=== PATIENT | female | born 1950 ===

== ENCOUNTER 2020-04-12 12:45 | Inpatient (IN) | payer OTHER ==
[~2020-04-12] VITALS: Ht 165.1 cm; Wt 65.3 kg
[2020-04-12] MEDS ORDERED: ZESTRIL10 M1 PO (14:32)
[2020-04-12] MEDS ORDERED: GABAPENTIN PO (14:33)
[2020-04-18] MEDS ORDERED: GABAPENTIN100 M2 PO (08:44)
== END 2020-04-21 16:23 | disposition home or self-care (01) | DRG 331 ==
LOC: O/R 04-18 06:08 → SURH 04-18 06:08 → O/R 04-18 12:45 → SURH 04-21 16:23
PROVIDERS: ADMIT Colon & Rectal Surgery; ATTEND Colon & Rectal Surgery
PROC: 0WUF47Z Supplement Abdominal Wall with Autologous Tissue Substitute, Percutaneous Endoscopic Approach (ICD-10-PCS; 2020-04-18)
PROC: 3E0F7GC Introduction of Other Therapeutic Substance into Respiratory Tract, Via Natural or Artificial Opening (ICD-10-PCS; 2020-04-18)
PROC: 0DTN4ZZ Resection of Sigmoid Colon, Percutaneous Endoscopic Approach (ICD-10-PCS; principal; 2020-04-18 10:45)
DX: K57.32 Diverticulitis of large intestine without perforation or abscess without bleeding (principal); I11.9 Hypertensive heart disease without heart failure; R73.01 Impaired fasting glucose; J45.20 Mild intermittent asthma, uncomplicated